=== PATIENT | male | born 1940 | race Caucasian/White ===

== ENCOUNTER → 2016-12-17 | Outpatient (CLI) | payer MEDICARE, OTHER ==
[~2016-12-17] MED LIST: ALLO300T2 PO; COLC1TAB7 PO; DIGO0.12 PO; HYDR-2768 PO; METO50CR PO; QUIN40TA10 PO; SIMV20TA PO; WARF1TAB PO
--- NOTE | 2016-12-21 09:30 | RSPPFT ---
DATE OF PROCEDURE: 12/17/16 COMMENTS: VOLUMES DYNAMIC: FVC and FEV1 moderately reduced. STATIC: TLC, FRC normal; RV mildly increased. FLOWS: FEV1% mildly reduced; FEF 25-75 severely reduced. DIFFUSION: Moderately reduced. FLOW VOLUME LOOP: Pattern of variable intrathoracic airways obstruction. IMPRESSION: Moderate obstructive ventilatory defect with reduction in diffusion. Airways resistance is increased. There is mild hyperinflation. Minimal improvement noted post-bronchodilator.
== END ==
LOC: HRSP 10:26
PROVIDERS: ATTEND Internal Medicine
DX: J45.909 Unspecified asthma, uncomplicated (principal)
CPT/HCPCS: 94060; 94620; 94726; 94729; 95012